=== PATIENT | female | born 1990 | race Caucasian/White ===

== ENCOUNTER 2021-08-26 00:10 | Emergency (ER) | payer OTHER ==
[~2021-08-26] VITALS: Ht 170.2 cm; Wt 61.7 kg
[2021-08-26] MEDS ORDERED: MORPHINE SULFATE 4 MG/1 ML DISP.SYRIN IM ONE (01:00)
--- NOTE | 2021-08-26 01:01 | NUR ---
GO OTERO FOR PELVIC EXAM.
[2021-08-26] MEDS ORDERED: MORPHINE SULFATE 4 MG/1 ML DISP.SYRIN ONE (01:17)
[2021-08-26 02:14] LABS: *BILIRUBIN,URIN NEGATIVE (NEGATIVE); *CLARITY,URINE CLEAR (CLEAR); *COLOR,URINE YELLOW (YELLOW); *KETONES,URINE NEGATIVE (NEGATIVE); *UROBILINOGEN,URINE 0.2 E.U./dl (NORMAL); LEUKOCYTE ESTERASE ,URINE NEGATIVE (NEGATIVE); NITRITE, URINE NEGATIVE (NEGATIVE); PH,URINE 5.5 (5.0-8.0); UGLUCOSE NEGATIVE (NEGATIVE)
[2021-08-26 02:15] LABS: *BLOOD, URINE TRACE (NEGATIVE)
--- NOTE | 2021-08-26 02:18 | NUR ---
GO MORALES FOR PELVIC US.
[2021-08-26 02:21] LABS: *URINE HCG, QUAL NEGATIVE (NEGATIVE); BACTERIA,URINE FEW /HPF (NONE SEEN); RBC,URINE 0-3 /HPF (0-3); SQUAMOUS EPITHELIAL CELL,UR MODERATE /HPF (NONE SEEN); WBC,URINE 0-3 /HPF (0-3)
[2021-08-26] MEDS ORDERED: KETOROLAC TROMETHAMINE 60 MG INJ IM ONE ×2 (03:15→03:23)
[2021-08-26] MEDS ORDERED: HYDROCODONE/APAP 5-325MG TABLET PO ONE (03:15)
[2021-08-26] MEDS ORDERED: HYDROCODONE/APAP 5-325MG TABLET ONE (03:23)
--- NOTE | 2021-08-26 03:53 | NUR ---
CALL[facility]PRET[facility] OF [facility].
--- NOTE | 2021-08-26 04:42 | NUR ---
Spoke to Sherry from [facility] for update regarding Pelvic US interpretation, stated it will be finish in a few minutes.
[2021-08-26] MEDS ORDERED: IBUP-1957 PO (05:12)
[2021-08-26] MEDS ORDERED: HYDR-4209 PO (05:12)
[2021-08-26 05:22] VITALS: BP 125/80
--- NOTE | 2021-08-26 05:22 | NUR ---
Patient discharged to home in stable condition. Written and verbal after care instructions given. Patient verbalizes understanding of instructions. Stressed follow up or return to ER for worsening s/s.
[2021-08-28 23:21] LABS: *GC NAA Negative; *TRIC.VAG. NAA Negative
== END 2021-08-26 05:28 | disposition home or self-care (01) ==
LOC: ER 00:20
DX: R10.2 Pelvic and perineal pain (principal); N89.8 Other specified noninflammatory disorders of vagina; Z97.5 Presence of (intrauterine) contraceptive device
CPT/HCPCS: 76856; 81001; 84703; 87491; 96372 ×2; 99284; J1885; J2270; A4663